=== PATIENT | female | born 1970 | race Two or more races ===

== ENCOUNTER 2022-10-11 14:18 | Emergency (ER) | payer OTHER ==
[~2022-10-11] VITALS: Ht 160 cm; Wt 68.1 kg
[2022-10-11] MEDS ORDERED: OSEL75CA5 PO (17:13)
[2022-10-11] MEDS ORDERED: PROM1SOL4 PO (17:13)
[2022-10-11] MEDS ORDERED: IBUP800T26 PO (17:13)
[2022-10-11 18:24] VITALS: BP 143/82
== END 2022-10-11 18:26 | disposition home or self-care (01) ==
LOC: ER 14:18
DX: B34.9 Viral infection, unspecified (principal)